=== PATIENT | male | born 1945 | race Caucasian/White ===

== ENCOUNTER → 2017-01-23 | Outpatient (CLI) | payer MEDICARE ==
[2017-01-23 07:53] LABS: CHCM 34.5; HCT 28.5 % (39.0-53.0); HDW 2.49; HGB 10.3 gm/dL (13.0-17.5); MCH 33.8 pg (25.0-35.0); MCHC 36.4 g/dL (31.0-37.0); MCV 93.1 fL (80.0-100.0); Mean Platelet Volume 6.9; RBC 3.06 m/uL (4.30-5.90); RDW 12.7 % (11.5-15.5); WBC 3.3 k/uL (3.8-10.6)
[2017-01-23 10:58] LABS: ALT 29 U/L (21-72); AST 23 U/L (17-59); Alkaline Phosphatase 56 U/L (38-126); Anion Gap 6 mmol/L; Blood Urea Nitrogen 22 mg/dL (9-20); Carbon Dioxide 27 mmol/L (22-30); Chloride 109 mmol/L (98-107); Cholesterol 166 mg/dL (<200); Glucose 97 mg/dL (74-99); HDL Cholesterol 78 mg/dL (40-60); Non-African American GFR(MDRD) >60 (>60 ml/min/1.73 sqM); Potassium 4.2 mmol/L (3.5-5.1); Sodium 142 mmol/L (137-145); Total Bilirubin 0.8 mg/dL (0.2-1.3); Total Protein 6.5 g/dL (6.3-8.2); Triglycerides 85 mg/dL (<150)
== END ==
LOC: LABWHC1 06:51
PROVIDERS: ATTEND Internal Medicine Cardiovascular Disease
DX: I25.10 Atherosclerotic heart disease of native coronary artery without angina pectoris (principal); I10 Essential (primary) hypertension; Z12.5 Encounter for screening for malignant neoplasm of prostate; E78.5 Hyperlipidemia, unspecified
CPT/HCPCS: 80061; 80053; 84443; 85027; 36415; G0103